=== PATIENT | female | born 1965 | race Caucasian/White ===

== ENCOUNTER 2019-08-13 15:20 | Outpatient (CLI) | payer MEDICARE, BC, SELFPAY ==
--- NOTE | 2019-08-13 15:30 | MM_ITS ---
WS: [id number] BILATERAL DIGITAL SCREENING MAMMOGRAPHY WITH CAD CLINICAL INFORMATION: SCREENING HISTORY: Screening mammogram. No current complaints. COMPARISON: July 08, 2017 TECHNIQUE: Bilateral CC and MLO views. FINDINGS: The breasts are composed of heterogeneous fibroglandular density tissue, which can limit the detectio n of small underlying mass lesions. Biopsy clip left breast. No suspicious mass, asymmetry, calcifica tions, or architectural distortion. No evidence of malignancy. MM/[place] [id number] IMPRESSION: BI-RADS: 2-Benign FOLLOW UP: 1 Year Follow-up Recommend return to annual screening mammography.
== END 2019-08-13 15:21 | disposition home or self-care (01) ==
PROVIDERS: Family Provider Nurse Practitioner; PCP Nurse Practitioner; Visit Provider Nurse Practitioner
DX: Z12.31 Encounter for screening mammogram for malignant neoplasm of breast (principal)
CPT/HCPCS: 77067

== ENCOUNTER 2019-12-07 15:56 | Outpatient (CLI) | payer MEDICARE, BC, SELFPAY ==
--- NOTE | 2019-12-07 16:00 | MR_ITS ---
WS: [id number] MRI LUMBAR SPINE NONCONTRAST HISTORY: M54.16 Radiculopathy, lumbar region COMPARISON: 11/21/2012 TECHNIQUE: Sagittal and axial multisequence imaging is submitted. Mild thoracolumbar scoliosis. Mild RIGHT convex curvature the lumbar spine. No acute fracture or marrow edema. The L5 vertebral bod y appears partially sacralized. Rudimentary L5-S1 disc. Mild disc space desiccation at L3-4 and L4-5. Conus terminates normally at T12. L1-L2: Normal. L2-L3: Mild facet and ligamentum flavum hypertrophy. No stenosis. L3-L4: Diffuse mild annular disc bulging and osteophytic ridging. Small amount of fluid in the facet joints. No significant stenosis. L4-L5: Diffuse mild annular disc bulging and osteophytic ridging. Mild ligamentum flavum disease and facet disease. There is increased soft tissue extending into the LEFT subarticular recess abutting th e L5 nerve root. Suspect focal disc protrusion. L5-S1: Small rudimentary disc. Rounded area of slight increased signal on the axial T2 sequence in the inferior RIGHT kidney measuri ng 16 mm. MR/MR lumbar spine wo con* [id number] IMPRESSION: 1. New focal disc protrusion extending into the LEFT L4-5 subarticular recess abutting the L5 nerve root. 2. L5 vertebral body is partially sacralized with a rudimentary L5-S1 disc. Th is will be important if surgery is contemplated in this patient to correlate wi th the correct level of the disc protrusion. 3. No severe central stenosis. 4. Signal abnormality lower pole RIGHT kidney. Recommend follow-up ultrasound to evaluate for possible solid mass or cyst.
== END 2019-12-07 15:57 | disposition home or self-care (01) ==
PROVIDERS: PCP Nurse Practitioner; Visit Provider Nurse Practitioner
DX: M54.16 Radiculopathy, lumbar region (principal); M51.26 Other intervertebral disc displacement, lumbar region
CPT/HCPCS: 72148

== ENCOUNTER 2020-01-04 07:03 | Outpatient (CLI) | payer MEDICARE, BC, SELFPAY ==
--- NOTE | 2020-01-04 07:15 | US_ITS ---
WS: [id number] RENAL ULTRASOUND Ultrasound urinary bladder HISTORY: Right kidney abnormal on MRI COMPARISON: MRI 12/07/2019. TECHNIQUE: 2-D and color Doppler imaging of the kidney submitted. Right kidney: 11.5 cm x 5.1 cm x 4.8 cm. Normal echogenicity with no hydronephrosis or mass. The signal abnormality seen on the recent MRI in the lower pole RIGHT kidney is not definitely visualized by ultrasound. Left kidney: 8.5 cm x 4.5 cm x 3.7 cm. Normal echogenicity with no hydronephrosis or mass. Aorta: Normal. Urinary Bladder: Nondistended bladder. No free fluid. US/US renal BI with bladder IMPRESSION: 1. Signal abnormality in the lower pole of the RIGHT kidney seen on MRI is not visualized by ultrasound. Potentially may have been an artifact. As this signa l abnormality did appear real suggest follow-up three-phase renal CT evaluation . 2. No hydronephrosis.
== END 2020-01-04 07:04 | disposition home or self-care (01) ==
PROVIDERS: PCP Nurse Practitioner; Visit Provider Nurse Practitioner
DX: R93.429 Abnormal radiologic findings on diagnostic imaging of unspecified kidney (principal)
CPT/HCPCS: 76770; 76857

== ENCOUNTER → 2020-05-21 08:28 | Outpatient (BNVA) | payer MEDICARE, BC, SELFPAY | PROVIDERS: PCP Nurse Practitioner; Visit Provider Nurse Practitioner | DX: Z11.59 Encounter for screening for other viral diseases (principal) | CPT/HCPCS: 87635 ==

== ENCOUNTER → 2020-05-23 10:34 | Outpatient (BNVA) | payer MEDICARE, BC, SELFPAY | PROVIDERS: PCP Nurse Practitioner; Visit Provider Nurse Practitioner | DX: R68.2 Dry mouth, unspecified (principal); E88.81 Metabolic syndrome and other insulin resistance | CPT/HCPCS: 80053; 81000; 85025 ==

== ENCOUNTER → 2020-07-24 16:21 | Outpatient (BNVA) | payer MEDICARE, BC, SELFPAY | PROVIDERS: PCP Nurse Practitioner; Visit Provider Nurse Practitioner | DX: E11.65 Type 2 diabetes mellitus with hyperglycemia (principal); R68.2 Dry mouth, unspecified; E03.8 Other specified hypothyroidism | CPT/HCPCS: 80053; 80061; 81000; 82043; 83036; 85025 ==

== ENCOUNTER → 2020-12-29 08:45 | Outpatient (BNVA) | payer MEDICARE, BC, SELFPAY | PROVIDERS: PCP Nurse Practitioner; Visit Provider Nurse Practitioner | DX: E11.65 Type 2 diabetes mellitus with hyperglycemia (principal); M54.16 Radiculopathy, lumbar region; F41.1 Generalized anxiety disorder; Z13.6 Encounter for screening for cardiovascular disorders; E88.81 Metabolic syndrome and other insulin resistance; G89.29 Other chronic pain; G35 Multiple sclerosis; E78.2 Mixed hyperlipidemia | CPT/HCPCS: 80053; 80061; 83036; 85025 ==

== ENCOUNTER → 2021-06-13 09:23 | Outpatient (BNVA) | payer MEDICARE, BC, SELFPAY | PROVIDERS: PCP Nurse Practitioner; Visit Provider Nurse Practitioner | DX: E11.65 Type 2 diabetes mellitus with hyperglycemia (principal) | CPT/HCPCS: 80053; 80061; 83036; 85025 ==

== ENCOUNTER → 2022-02-04 16:52 | Outpatient (BNVA) | payer MEDICARE, BC, SELFPAY | PROVIDERS: PCP Nurse Practitioner; Visit Provider Nurse Practitioner | DX: E11.65 Type 2 diabetes mellitus with hyperglycemia (principal); F41.1 Generalized anxiety disorder; Z12.39 Encounter for other screening for malignant neoplasm of breast | CPT/HCPCS: 80053; 80061; 83036; 84439; 84443; 84481 ==

== ENCOUNTER → 2022-06-27 16:47 | Outpatient (BNVA) | payer MEDICARE, BC, SELFPAY | PROVIDERS: PCP Nurse Practitioner; Visit Provider Nurse Practitioner | DX: E11.65 Type 2 diabetes mellitus with hyperglycemia (principal); E78.2 Mixed hyperlipidemia; F41.1 Generalized anxiety disorder; E03.8 Other specified hypothyroidism | CPT/HCPCS: 80053; 80061; 83036; 84443 ==

== ENCOUNTER → 2022-11-14 15:40 | Outpatient (BNVA) | payer MEDICARE, BC, SELFPAY | PROVIDERS: PCP Nurse Practitioner; Visit Provider Nurse Practitioner Family | DX: E11.65 Type 2 diabetes mellitus with hyperglycemia (principal); E03.8 Other specified hypothyroidism; E78.2 Mixed hyperlipidemia; F41.1 Generalized anxiety disorder | CPT/HCPCS: 80053; 80061; 83036; 84443; 85025 ==

== ENCOUNTER → 2023-02-03 10:23 | Outpatient (BNVA) | payer MEDICARE, BC, SELFPAY | PROVIDERS: PCP Nurse Practitioner; Visit Provider Nurse Practitioner | DX: E03.8 Other specified hypothyroidism (principal); E11.65 Type 2 diabetes mellitus with hyperglycemia | CPT/HCPCS: 80053; 83036; 84443 ==

== ENCOUNTER → 2023-05-26 16:47 | Outpatient (BNVA) | payer MEDICARE, BC, SELFPAY | PROVIDERS: PCP Nurse Practitioner; Visit Provider Nurse Practitioner | DX: E03.8 Other specified hypothyroidism (principal); E11.65 Type 2 diabetes mellitus with hyperglycemia | CPT/HCPCS: 80053; 83036; 84443 ==

== ENCOUNTER → 2023-11-27 10:36 | Outpatient (BNVA) | payer MEDICARE, BC, SELFPAY | PROVIDERS: PCP Nurse Practitioner; Visit Provider Nurse Practitioner | DX: E78.2 Mixed hyperlipidemia (principal); E11.65 Type 2 diabetes mellitus with hyperglycemia; E03.8 Other specified hypothyroidism; E55.9 Vitamin D deficiency, unspecified; J30.89 Other allergic rhinitis; J98.01 Acute bronchospasm; F41.1 Generalized anxiety disorder | CPT/HCPCS: 80053; 80061; 82043; 82306; 83036; 84443 ==

== ENCOUNTER → 2024-05-13 10:35 | Outpatient (BNVA) | payer MEDICARE, BC, SELFPAY | PROVIDERS: PCP Nurse Practitioner; Visit Provider Nurse Practitioner | DX: E11.65 Type 2 diabetes mellitus with hyperglycemia (principal); E78.2 Mixed hyperlipidemia; E03.8 Other specified hypothyroidism | CPT/HCPCS: 80053; 80061; 84443; 85025 ==

== ENCOUNTER → 2024-05-14 13:55 | Outpatient (BNVA) | payer MEDICARE, BC, SELFPAY | PROVIDERS: PCP Nurse Practitioner; Visit Provider Nurse Practitioner | DX: E11.65 Type 2 diabetes mellitus with hyperglycemia (principal) | CPT/HCPCS: 83036 ==

== ENCOUNTER 2024-05-26 09:15 | Outpatient (CLI) | payer MEDICARE, BC, SELFPAY ==
--- NOTE | 2024-05-26 09:30 | MM_ITS ---
WS: [id number] Bilateral screening 3D tomosynthesis digital mammogram, 05/26/2024 9:25 AM Clinical Data: Z12.31 - Encounter for screening mammogram for malignant ... Comparison: 08/13/2019, 07/08/2017, 07/28/2009, 12 10/01/2007, 05/11/2008, 05/03/2008, 04/29/2007, 2005. Findings: No spiculated masses or clustered calcifications are seen. There are no secondary signs of carcinoma . MM/MM [facility] tomosynthesis [id number] Impression: Negative bilateral mammogram unchanged. Recommend annual screening mammograms. BIRADS: 1 - Negative. FOLLOW UP: 1 Year Follow-up DENSITY: There are scattered areas of fibroglandular density. The CAD formula checker was used
== END 2024-05-26 09:16 | disposition home or self-care (01) ==
LOC: RAD 09:16
PROVIDERS: PCP Nurse Practitioner; Visit Provider Nurse Practitioner
DX: Z12.31 Encounter for screening mammogram for malignant neoplasm of breast (principal)
CPT/HCPCS: 77063; 77067

== ENCOUNTER → 2024-10-21 10:25 | Outpatient (BNVA) | payer MEDICARE, BC, SELFPAY | PROVIDERS: PCP Nurse Practitioner; Visit Provider Nurse Practitioner | DX: E11.65 Type 2 diabetes mellitus with hyperglycemia (principal); E03.8 Other specified hypothyroidism; E55.9 Vitamin D deficiency, unspecified | CPT/HCPCS: 80053; 80061; 82306; 83036; 84443; 85025 ==

== ENCOUNTER → 2025-04-21 10:15 | Outpatient (BNVA) | payer MEDICARE, BC, SELFPAY | PROVIDERS: PCP Nurse Practitioner; Visit Provider Nurse Practitioner | DX: E11.65 Type 2 diabetes mellitus with hyperglycemia (principal); E78.2 Mixed hyperlipidemia; E03.8 Other specified hypothyroidism | CPT/HCPCS: 80053; 80061; 82043; 83036; 84443 ==

== ENCOUNTER 2025-05-27 13:36 | Outpatient (CLI) | payer MEDICARE, BC, SELFPAY ==
--- NOTE | 2025-05-27 14:00 | MM_ITS ---
WS: [id number] BILATERAL 3D TOMOSYNTHESIS DIGITAL SCREENING MAMMOGRAPHY WITH CAD CLINICAL INFORMATION: Z12.31 - Encounter for screening mammogram for malignant ... HISTORY: Screening mammogram. No current complaints. COMPARISON: 2023 TECHNIQUE: Bilateral CC and MLO views. FINDINGS: Scattered fibroglandular densities bilaterally. No suspicious focal mass, asymmetry, calcifications, or architectural distortion. No evidence of malignancy. A few incidental punctate calcifications. MM/MM [facility] tomosynthesis [id number] IMPRESSION: DENSITY: There are scattered areas of fibroglandular density. BI-RADS: 2 - Benign. FOLLOW UP: 1 Year Follow-up Recommend return to annual screening mammography.
== END 2025-05-27 13:37 | disposition home or self-care (01) ==
LOC: RAD 13:38
PROVIDERS: PCP Nurse Practitioner; Visit Provider Nurse Practitioner
DX: Z12.31 Encounter for screening mammogram for malignant neoplasm of breast (principal); R92.323 Mammographic fibroglandular density, bilateral breasts; R92.1 Mammographic calcification found on diagnostic imaging of breast
CPT/HCPCS: 77063; 77067